=== PATIENT | male | born 1950 | race Caucasian/White ===

== ENCOUNTER 2023-11-07 10:51 | Emergency (ER) | payer OTHER ==
[2023-11-07 11:04] VITALS: BP 156/71; PULSE 79; RESP 18; TEMP 98.4; BMI 29.7
[2023-11-07] MEDS: IBUPROFEN 600 MG TABLET (FP) PO ONE (11:41)
[2023-11-07] MEDS ORDERED: IBUPROFEN 600 MG TABLET (FP) PO ONE (11:43)
== END 2023-11-07 12:42 | disposition home or self-care (01) ==
LOC: JERFT 10:51
DX: R07.89 Other chest pain (principal); M54.9 Dorsalgia, unspecified; V43.52XA Car driver injured in collision with other type car in traffic accident, initial encounter; Y92.410 Unspecified street and highway as the place of occurrence of the external cause
CPT/HCPCS: 71046-TC-FY; 93005; 93010; 99284-25